=== PATIENT | female | born 1975 | race Caucasian/White ===

== ENCOUNTER 2016-12-18 14:00 | Day surgery (SDC) | payer OTHER ==
[2016-12-18] MEDS ORDERED: LIDOCAINE 2% JELLY 5 ML TUBE ONE (14:01)
== END 2016-12-18 16:30 | disposition home or self-care (01) ==
LOC: END 14:00
PROVIDERS: ATTEND Internal Medicine Gastroenterology
PROC: 4A0B78Z Measurement of Gastrointestinal Motility, Via Natural or Artificial Opening (ICD-10-PCS; principal; 2016-12-18)
DX: R13.14 Dysphagia, pharyngoesophageal phase (principal); K21.0 Gastro-esophageal reflux disease with esophagitis; K59.01 Slow transit constipation; F43.23 Adjustment disorder with mixed anxiety and depressed mood; Z88.5 Allergy status to narcotic agent; Z79.899 Other long term (current) drug therapy
CPT/HCPCS: 91035